=== PATIENT | female | born 1995 | race Caucasian/White ===

== ENCOUNTER 2022-09-01 19:30 | Inpatient (IN) ==
[2022-09-01] MEDS ORDERED: Promethazine INJ(RESTRICTED) 25 MG/ML 1 ml VIAL IV PRN (20:16)
[2022-09-01] MEDS ORDERED: Lactated Ringers 1000 ml BAG 1,000 ML IV ONE (20:16)
[2022-09-01] MEDS ORDERED: Buffered Lidocaine 1% SYRIN 1 ml INTRADERM ONE (20:16)
[2022-09-01] MEDS ORDERED: Lactated Ringers 1000 ml BAG 1,000 ML IV SCH (21:00)
[2022-09-01 21:07] LABS: Hematocrit 38.3 % (35-45); Hemoglobin 13.1 g/dL (11.5-14.3); Mean Corpuscular Hemoglobin 25.7 pg (27-33); Mean Corpuscular Hgb Conc 34.3 g/dL (31-36); Mean Corpuscular Volume 74.9 fL (80-97); Mean Platelet Volume 8.4 fL (7.5-11.2); Platelet Count 258 10^3/uL (150-450); Red Blood Count 5.11 10^6/uL (3.63-4.92); Red Cell Distribution Width 15.6 % (12-17); White Blood Count 14.9 10^3/uL (3.8-11.8)
[2022-09-01 21:28] LABS: ABS Basophils 0.1 10^3/uL (0.0-0.1); ABS Lymphocytes 1.3 10^3/uL (1.0-4.8); ABS Monocytes 0.7 10^3/uL (0.0-0.9); ABS Neutrophils 12.8 10^3/uL (1.5-7.6); ABS Nucleated RBC 0.02 10^3/ul; Eosinophil % 0.1 %; Lymphocyte % 8.7 %; Nucleated Red Blood Cells % 0.1 /100 WBC (0.0-0.4)
[2022-09-01 21:30] LABS: Microcytosis 2+
[2022-09-01] MEDS ORDERED: Oxytocin in LR 20,000 MILLI.UNIT/1,000 ML BAG IV ONE (23:54)
[2022-09-02] MEDS ORDERED: Witch Hazel PAD JAR TOPICAL PRN (00:02)
[2022-09-02] MEDS ORDERED: Glycerin ADULT 2.4 gm SUPP PR PRN (00:02)
[2022-09-02] MEDS ORDERED: Oxytocin 10 UNITS/ML 1 ML VIAL IM ONE (00:02)
[2022-09-02] MEDS ORDERED: Dibucaine 1% OINT 28.35 GM TUBE PR PRN (00:02)
[2022-09-02] MEDS ORDERED: Oxytocin in LR 20,000 MILLI.UNIT/1,000 ML BAG IV SCH (00:15)
[2022-09-02] MEDS ORDERED: Lactated Ringers 1000 ml BAG 1,000 ML IV SCH (01:00)
[2022-09-02 03:41] LABS: Urine Benzodiazepine Screen None Detected (None Detect); Urine Cannabinoids Screen None Detected (None Detect); Urine Opiates Screen None Detected (None Detect)
[2022-09-02 10:12] LABS: Hematocrit 28.5 % (35-45); Hemoglobin 9.8 g/dL (11.5-14.3); Mean Corpuscular Hemoglobin 26.2 pg (27-33); Mean Corpuscular Hgb Conc 34.4 g/dL (31-36); Mean Corpuscular Volume 76.2 fL (80-97); Platelet Count 243 10^3/uL (150-450); Red Blood Count 3.74 10^6/uL (3.63-4.92); Red Cell Distribution Width 15.2 % (12-17)
[2022-09-02] MEDS ORDERED: Iron Sucrose 200 MG in NS 0.9% 100 ml BAG 100 ML IVPB ONE (10:26)
[2022-09-02 10:44] LABS: ABS Basophils 0.1 10^3/uL (0.0-0.1); ABS Lymphocytes 2.5 10^3/uL (1.0-4.8); ABS Monocytes 2.3 10^3/uL (0.0-0.9); ABS Neutrophils 15.1 10^3/uL (1.5-7.6); Eosinophil % 0.1 %; Lymphocyte % 12.5 %
[2022-09-03 09:26] VITALS: BP 115/65
== END 2022-09-03 11:06 | disposition home or self-care (01) | DRG 560 ==
LOC: MCHOBOUT 19:30 → MCHOB 20:14
PROVIDERS: ADMIT Advanced Practice Midwife; ATTEND Advanced Practice Midwife